=== PATIENT | male | born 1980 ===

== ENCOUNTER → 2020-09-07 | Outpatient (CLI) | payer OTHER ==
--- NOTE | 2020-09-07 16:18 | RADIOLOGY REPORT (SQ) ---
EXAM DESCRIPTION: VENOUS UNILATERAL UPPER IMAGES COMPLETED DATE/TIME: 09/07/2020 3:29 pm REASON FOR STUDY: LUE PAIN/SWELLING M79.622 PAIN IN LEFT UPPER ARM R22.32 LOCALIZED SWELLING, MASS AND LUMP, LEFT UPPER LIMB COMPARISON: None. TECHNIQUE: Dynamic and static treviño scale and color images acquired of the left arm venous system. Se lected spectral images acquired with additional compression and augmentation maneuvers. The contralat eral subclavian vein and internal jugular vein were also imaged. Images stored on PACS. LIMITATIONS: None. FINDINGS: INTERNAL JUGULAR VEIN: Normal compression. No visualized echogenic material on treviño scale. No defects on color Doppler. SUBCLAVIAN VEIN: Normal compression and augmentation. No visualized echogenic material on treviño scale. No defects on color Doppler. AXILLARY VEIN: Normal compression and augmentation. No visualized echogenic material on treviño scale. N o defects on color Doppler. BRACHIAL VEIN: Normal compression and augmentation. No visualized echogenic material on treviño scale. N o defects on color Doppler. BASILIC VEIN: Normal compression and augmentation. No visualized echogenic material on treviño scale. No defects on color Doppler. CEPHALIC VEIN: Acute occlusive echogenic thrombus within a short non-compressible segment of the ceph alic vein at the antecubital fossa resulting in loss of its normal phasicity and augmentation. OTHER: No other finding. CONTRALATERAL INTERNAL JUGULAR VEIN: Normal compression. No visualized echogenic material on treviño scale. No defects on color Doppler. IMPRESSION: Acute occlusive thrombus within a short segment of the cephalic vein at the antecubital fossa. COMMENT: The results were discussed with the referring physician on 09/07/2020 at 1510 hours. TECHNICAL DOCUMENTATION: JOB ID: [id number]- All Rights Reserved Reading location - IP/workstation name: [email or web address]
== END ==
LOC: RAD 14:29
PROVIDERS: ATTEND Internal Medicine
DX: I82.612 Acute embolism and thrombosis of superficial veins of left upper extremity (principal); M79.622 Pain in left upper arm
CPT/HCPCS: 93971